=== PATIENT | male | born 1945 | race Caucasian/White ===

== ENCOUNTER 2016-09-27 00:24 | Inpatient (IN) | payer OTHER, MEDICARE ==
[~2016-09-27] VITALS: Ht 185.4 cm; Wt 146.4 kg
[~2016-09-27 00:24] MED LIST: BUME1TAB PO; COUM3TAB PO; GABA100C4 PO; GLIP5 PO; LISI-357 PO; POTA-243 PO; SIMV20 PO; VITA400D PO
[2016-09-27 00:32] VITALS: BP 161/105; PULSE 101; RESP 20; TEMP 97.9; O2SAT 98
[2016-09-27 01:35] VITALS: BP 161/105; PULSE 101; RESP 18; TEMP 97.9; O2SAT 98
[2016-09-27] MEDS ORDERED: ONDANSETRON HCL 4 MG/2 ML VIAL IV ONE (02:00)
[2016-09-27] MEDS ORDERED: WARF4TAB52 PO (02:00)
[2016-09-27] MEDS ORDERED: WARF4TAB51 PO (02:00)
[2016-09-27] MEDS ORDERED: GLIP5TAB8 PO (02:00)
[2016-09-27] MEDS ORDERED: MAGNESIUM CITRATE SOLN 300 ML BTL PO ONE ×2 (02:00→04:15)
--- NOTE | 2016-09-27 02:04 | PD ---
HPI Chief Complaint: GI Complaint Time Seen by Provider: 01:53 Travel History International Travel<30 days: No Contact w/Intl Traveler<30days: No Traveled to known affect area: No History of Present Illness HPI The patient is a 71-year-old male that comes in because he is unable have a bowel movement for 5 days. The patient has back pain but he denies any trauma. The back pain is been going on for about a week. The patient brought a new car which has some degree of difficulty getting in and out of the automobile knee feels that this may have contributed to the back pain. He calls the back pain a nuisance, it is not severe. He has left leg numbness and weakness but the severe intermittent and chronic because he has left leg injury in the past. He denies any urinary problems. He has decreased appetite and possibly some nausea but he claims to have been drinking adequate fluids. PFSH Past Medical History Hx Anticoagulant Therapy: Yes Blood Disorders: No Cancer: No Cardiovascular Problems: No Coronary Artery Disease: Yes Diabetes: Yes Patient Takes Glucophage: No Endocrine: No Gastrointestinal Disorders: No Genitourinary: No Hepatitis: No Hiatal Hernia: No Hypertension: Yes Immune Disorder: No Musculoskeletal: No Neurologic: No Psychiatric: No Reproductive: No Respiratory: No Thyroid Disease: No Influenza Vaccination: No Past Surgical History Abdominal Surgery: No AICD: No Cardiac Surgery: No Endocrine Surgery: No Eye Surgery: No Genitourinary Surgery: No Joint Replacement: Yes (LEFT HIP 2001, 2002, REMOVED MAR 2006) Neurologic Surgery: No Oral Surgery: No Pacemaker: No Other Surgery: Yes (BILAT ANKLE FX REPAIR 2000) Social History Alcohol Use: Yes (OCCAS) Tobacco Use: Yes (07/04 PPD) Substance Use: No Allergies-Medications (Allergen,Severity, Reaction): Coded Allergies: No Known Allergies (Verified , 09/27/16) Uncoded Allergies: PAPER TAPE TEARS HIS SKIN (Allergy, Mild, 11/01/06) Reported Meds & Prescriptions Reported Meds & Active Scripts Active Reported Glipizide 5 Mg Tab 5 Mg PO DAILY Take 30 minutes before a meal Warfarin 2 Mg Tab 2 Mg PO DAILY PRN Sun, Mon, Wed, Fri Warfarin 1 Mg Tab 1.5 Mg PO DAILY PRN Tues, Thurs, Sat Review of Systems Except as stated in HPI: all other systems reviewed are Neg Physical Exam Narrative GENERAL: The patient is alert, oriented 3 in no apparent distress. The heart rate is 101 and the blood pressure is 161/105 but the rest the vital signs are normal. SKIN: Focused skin assessment warm/dry. There is a chronic venous insufficiency rash on both lower extremities otherwise no other skin rash. HEAD: Atraumatic. Normocephalic. EYES: Pupils equal and round. No scleral icterus. No injection or drainage. ENT: No nasal bleeding or discharge. Mucous membranes pink and moist. NECK: Trachea midline. No JVD. CARDIOVASCULAR: Regular rate and rhythm. No murmur appreciated. RESPIRATORY: No accessory muscle use. Clear to auscultation. Breath sounds equal bilaterally. GASTROINTESTINAL: Abdomen soft, non-tender, nondistended. Hepatic and splenic margins not palpable. No guarding or rebound is present. MUSCULOSKELETAL: No obvious deformities. No clubbing. No cyanosis. No edema. NEUROLOGICAL: Awake and alert. No obvious cranial nerve deficits. Motor grossly within normal limits. Normal speech. PSYCHIATRIC: Appropriate mood and affect; insight and judgment normal. RECTAL EXAM: No masses or tenderness, stool is brown and guaiac-negative. No fecal impactions are noted and the specter tone is normal. Data Data Last Documented VS Vital Signs Date Time Temp Pulse Resp B/P Pulse Ox O2 Delivery O2 Flow Rate FiO2 09/27/16 01:35 97.9 101 18 161/105 98 Orders Complete Blood Count With Diff (09/27/16 01:53) Basic Metabolic Panel (Bmp) (09/27/16 01:53) Urinalysis - C+S If Indicated (09/27/16 01:53) Sodium Chlor 0.9% 1000 Ml Inj (Ns 1000 M (09/27/16 02:00) Ondansetron Inj (Zofran Inj) (09/27/16 02:00) Magnesium Citrate Liq (Citroma Liq) (09/27/16 02:00) Magnesium Citrate Liq (Citroma Liq) (09/27/16 04:15) Peg (High)/E-Lyte Liq (Colyte Liq) (09/27/16 04:45) Iv Access Insert/Monitor (09/27/16 04:55) Ecg Monitoring (09/27/16 04:55) Oximetry (09/27/16 04:55) Sodium Chloride 0.9% Flush (Ns Flush) (09/27/16 05:00) Ct Abd/Pel W/O Iv Contrast (09/27/16 04:55) Admit To Inpatient (09/27/16 04:59) Vital Signs (Adult) Q4H (09/27/16 04:59) Diet Diabetic (09/27/16 Breakfast) Diet Renal (09/27/16 Breakfast) Sodium Chlor 0.9% 1000 Ml Inj (Ns 1000 M (09/27/16 04:59) Sodium Chloride 0.9% Flush (Ns Flush) (09/27/16 05:00) Sodium Chloride 0.9% Flush (Ns Flush) (09/27/16 09:00) Ondansetron Inj (Zofran Inj) (09/27/16 05:00) Bisacodyl Supp (Dulcolax Supp) (09/27/16 05:00) Docusate Sodium (Colace) (09/27/16 05:00) Magnesium Hydroxide Liq (Milk Of Magnesi (09/27/16 05:00) Sennosides (Senokot) (09/27/16 05:00) Comprehensive Metabolic Panel (09/28/16 06:00) Complete Blood Count With Diff (09/28/16 06:00) Pt Request For Service (09/27/16 04:59) Case Management Consult (09/27/16 04:59) Heparin Inj (Heparin Inj) (09/27/16 05:00) Naloxone Inj (Narcan Inj) (09/27/16 05:00) Insulin Aspart Supplemtl Scale (Novolog (09/27/16 07:00) Inpatient Certification (09/27/16 ) Prothrombin Time / Inr (Pt) (09/27/16 05:02) Warfarin Consult Pharmacy (Coumadin Cons (09/27/16 05:15) Admit Order (Ed Use Only) (09/27/16 05:26) Labs Laboratory Tests Test 09/27/16 09/27/16 09/27/16 02:10 03:30 05:18 White Blood Count 10.0 TH/MM3 Red Blood Count 4.32 MIL/MM3 Hemoglobin 12.4 GM/DL Hematocrit 37.9 % Mean Corpuscular Volume 87.8 FL Mean Corpuscular Hemoglobin 28.8 PG Mean Corpuscular Hemoglobin 32.8 % Concent Red Cell Distribution Width 15.4 % Platelet Count 232 TH/MM3 Mean Platelet Volume 7.3 FL Neutrophils (%) (Auto) 77.3 % Lymphocytes (%) (Auto) 10.0 % Monocytes (%) (Auto) 6.1 % Eosinophils (%) (Auto) 4.3 % Basophils (%) (Auto) 2.3 % Neutrophils # (Auto) 7.8 TH/MM3 Lymphocytes # (Auto) 1.0 TH/MM3 Monocytes # (Auto) 0.6 TH/MM3 Eosinophils # (Auto) 0.4 TH/MM3 Basophils # (Auto) 0.2 TH/MM3 CBC Comment DIFF FINAL Differential Comment Sodium Level 140 MEQ/L Potassium Level 5.3 MEQ/L Chloride Level 105 MEQ/L Carbon Dioxide Level 27.1 MEQ/L Anion Gap 8 MEQ/L Blood Urea Nitrogen 33 MG/DL Creatinine 2.80 MG/DL Estimat Glomerular Filtration 22 ML/MIN Rate Random Glucose 107 MG/DL Calcium Level 8.8 MG/DL Urine Color YELLOW Urine Turbidity CLEAR Urine pH 5.5 Urine Specific [place] 1.020 Urine Protein TRACE mg/dL Urine Glucose (UA) NEG mg/dL Urine Ketones NEG mg/dL Urine Occult Blood TRACE Urine Nitrite NEG Urine Bilirubin NEG Urine Leukocyte Esterase TRACE Urine RBC 3-5 /hpf Urine WBC 3-5 /hpf Urine Squamous Epithelial 6-8 /hpf Cells Urine Bacteria NONE /hpf Microscopic Urinalysis Comment CULT NOT INDICATED Prothrombin Time 30.5 SEC Prothromb Time International 2.6 RATIO Ratio MDM Medical Decision Making Medical Screen Exam Complete: Yes Emergency Medical Condition: Yes Medical Record Reviewed: Yes Interpretation(s) The CBC is normal except for hemoglobin of 12.4 and hematocrit of 37.9. The basic metabolic profile shows a potassium 5.3, BUN 33, creatinine 2.8 with GFR of 22. The urine shows trace occult blood, trace leukocyte esterase but is otherwise normal and culture is not indicated. The specific gravity is 1.020. Differential Diagnosis Small bowel obstruction, constipation, ileus, renal insufficiency, electrolyte disorder, dehydration Narrative Course Despite multiple cups of Gatorade and to bottles of magnesium citrate the patient still has not had a bowel movement. At this point we will give him GoLYTELY and the labor try at home. If he has any problems he should return to the emergency department. The patient states that he has reduced renal function. Unfortunately, I do not have any values of creatinine after 2006 for this patient. At that time, his creatinine was 1.2. It is now 2.8. It is possible this could be prerenal and from dehydration but the patient also has a potassium of 5.3 and no hemolysis was noted. The GFR is only 22. It is now 0450 and the patient has just vomited. It is now 0625 and the patient just had a bowel movement. He states he feels much better and wants to sign out AMA and go home. He is going to take care of his renal insufficiency, he already has a plan to see a operational risk consultant. Diagnosis Primary Impression: Constipation Additional Impression: Acute renal insufficiency Disposition: 07 AGAINST MEDICAL ADVICE Condition: Stable Trace Briscoe MD Sep 27, 2016 02:04
[2016-09-27 02:22] LABS: AUTOMATED NEUTROPHIL # 7.8 TH/MM3 (1.8-7.7); BASOPHIL # 0.2 TH/MM3 (0-0.2); BASOPHIL % 2.3 % (0.0-2.0); EOSINOPHIL # 0.4 TH/MM3 (0-0.4); EOSINOPHIL % 4.3 % (0.0-4.0); HEMATOCRIT 37.9 % (39.0-51.0); HEMO FLAGS DIFF FINAL; MEAN CELL VOLUME 87.8 FL (80.0-100.0); MEAN CORPUSCULAR HEMOGLOBIN 28.8 PG (27.0-34.0); MEAN CORPUSCULAR HGB CONC 32.8 % (32.0-36.0); MONO % 6.1 % (0.0-8.0); NEUT % 77.3 % (16.0-70.0); PLATELET COUNT 232 TH/MM3 (150-450); RED BLOOD COUNT 4.32 MIL/MM3 (4.50-5.90); RED CELL DISTRIBUTION WIDTH 15.4 % (11.6-17.2)
[2016-09-27 02:29] LABS: POTASSIUM 5.3 MEQ/L (3.5-5.1)
[2016-09-27 02:32] LABS: BICARBONATE 27.1 MEQ/L (21.0-32.0)
[2016-09-27] MEDS: SODIUM CHLOR 0.9% 1000 ML INJ 1,000 ML IV SCH ×2 (03:08→05:59)
[2016-09-27 03:39] LABS: BLOOD, URINE TRACE (NEG); GLUCOSE,URINE NEG (NEG); KETONE, URINE NEG (NEG); NITRITE,URINE NEG (NEG); PH, URINE 5.5 (5.0-8.5)
[2016-09-27 03:45] LABS: COMMENT (UR) CULT NOT INDICATED; CULTURE IF INDICATED CULT NOT INDICATED; URINE COLOR YELLOW (YELLW/STRAW)
[2016-09-27] MEDS ORDERED: PEG (High)/E-LYTE SOLN 4000 ML BTL PO ONE (04:45)
[2016-09-27] MEDS ORDERED: SODIUM CHLOR 0.9% 1000 ML INJ 1,000 ML IV SCH (04:59)
[2016-09-27] MEDS ORDERED: BISACODYL 10 MG SUPP RECTAL PRN (05:00)
[2016-09-27] MEDS ORDERED: ONDANSETRON HCL 4 MG/2 ML VIAL IVP PRN (05:00)
[2016-09-27] MEDS ORDERED: HEPARIN SODIUM - SQ 10,000 UNITS/ML VIAL SQ SCH (05:00)
[2016-09-27] MEDS ORDERED: SODIUM CHLORIDE 0.9% FLUSH 10 ML FLUSH IV FLUSH PRN ×2 (05:00)
[2016-09-27] MEDS ORDERED: SENNOSIDES 8.6 MG TAB PO PRN (05:00)
[2016-09-27] MEDS ORDERED: DOCUSATE SODIUM 100 MG CAP PO SCH (05:00)
[2016-09-27] MEDS ORDERED: NALOXONE HCL 0.4 MG/ML AMP IV PRN (05:00)
[2016-09-27] MEDS ORDERED: MAGNESIUM HYDROXIDE SUSP 30 ML CUP PO PRN (05:00)
--- NOTE | 2016-09-27 05:45 | RADHPO ---
EXAM DATE/TIME: 09/27/2016 05:02 [facility] COMPARISON: No previous studies available for comparison. INDICATIONS : Constipation for five days. ORAL CONTRAST: No oral contrast ingested. RADIATION DOSE: 30.00 CTDIvol (mGy) MEDICAL HISTORY : Diabetes mellitus type 2. Hypertension. SURGICAL HISTORY : Hip replacements. ENCOUNTER: Initial ACUITY: 4 - 6 days PAIN SCALE: 4/10 LOCATION: abdomen TECHNIQUE: Volumetric scanning of the abdomen and pelvis was performed. Using automated exposure control and ad justment of the mA and/or kV according to patient size, radiation dose was kept as low as reasonably achievable to obtain optimal diagnostic quality images. FINDINGS: Mild fibrotic change is present at the lung bases. No acute findings in the liver, spleen, adrenals, kidneys or pancreas. The stomach is distended with fluid. There is moderate constipation. Colonic diverticula are present without evidence for diverticulitis. No free fluid. No free air. No bowel obstruction. Previous left hip replacement. CONCLUSION: 1. Moderate constipation. Diverticulosis without diverticulitis. No acute findings. 2. Previous left hip replacement. Raoul Biggs MD on September 27, 2016 at 5:38 Board Certified Radiologist. This report was verified electronically.
[2016-09-27 05:50] LABS: INTERNATIONAL NORMALIZED RATIO 2.6 RATIO; PROTHROMBIN TIME - PATIENT 30.5 SEC (9.8-11.6)
[2016-09-27 06:15] VITALS: BP 174/74
[2016-09-27] MEDS ORDERED: INSULIN ASPART SUPPLEMENTAL SCALE SQ SCH (07:00)
[2016-09-27] MEDS ORDERED: SODIUM CHLORIDE 0.9% FLUSH 10 ML FLUSH IV FLUSH SCH (09:00)
== END 2016-09-27 06:44 | disposition left against medical advice (07) | DRG 392 ==
LOC: PHED 00:24 → PHEDA 05:28
PROVIDERS: ADMIT Family Medicine; ATTEND Family Medicine
DX: K59.00 Constipation, unspecified (principal); E11.9 Type 2 diabetes mellitus without complications; I10 Essential (primary) hypertension; I25.10 Atherosclerotic heart disease of native coronary artery without angina pectoris; N28.9 Disorder of kidney and ureter, unspecified; Z79.84 Long term (current) use of oral hypoglycemic drugs; F17.210 Nicotine dependence, cigarettes, uncomplicated
CPT/HCPCS: 74176; 80048; 81001; 85025; 85610; 96361; 96374; J1644; J2405; J7030

== ENCOUNTER 2016-10-01 14:27 | Emergency (ER) | payer MEDICARE, OTHER ==
[~2016-10-01] VITALS: Ht 185.4 cm; Wt 145.0 kg
[~2016-10-01 14:27] MED LIST changes: -BUME1TAB PO; -COUM3TAB PO; -GABA100C4 PO; -GLIP5 PO; +GLIP5TAB8 PO; -LISI-357 PO; -POTA-243 PO; -SIMV20 PO; -VITA400D PO; +WARF4TAB51 PO; +WARF4TAB52 PO
[2016-10-01 14:34] VITALS: BP 141/91; PULSE 89; RESP 18; TEMP 97.4; O2SAT 96
[2016-10-01] MEDS ORDERED: MORPHINE SULFATE 4 MG/ML INJ IV PUSH ONE ×2 (15:00→15:15)
[2016-10-01] MEDS ORDERED: SODIUM CHLORID 0.9% 500 ML INJ 500 ML IV ONE (15:00)
[2016-10-01] MEDS ORDERED: ONDANSETRON HCL 4 MG/2 ML VIAL IV PUSH ONE ×2 (15:00→15:15)
--- NOTE | 2016-10-01 15:08 | PD ---
HPI Chief Complaint: GI Complaint Time Seen by Provider: 14:52 Travel History International Travel<30 days: No Contact w/Intl Traveler<30days: No Traveled to known affect area: No History of Present Illness HPI The patient is a 71-year-old male who presents emergency department for low back pain with radiculopathy and constipation. The patient was evaluated in the emergency department one week ago for similar symptoms. The patient was noted to have elevated creatinine and a CT the abdomen and pelvis revealed moderate constipation. The patient was provided GoLYTELY, had a bowel movement, and signed out AGAINST MEDICAL ADVICE. The patient states he has had difficulty on weekend with pain in the lower back and radiates down the left leg , to the medial aspect left thigh, with mild weakness the left lower extremity. The patient states he had difficulty bearing weight on the affected leg earlier today. The patient also states he has not had a bowel movement since he signed out against medical records administrator. The patient states he received a call from his primary physician at home who asked him how he was doing today, advised and he is not doing well, and he was referred to the emergency department. The patient's primary physician is Dr. Dimitri Gillespie. The patient does note previous multiple surgeries to the left hip and the left lower extremity in the past, however, states the weakness is acute. 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 He denies any difficulty with urination. He does complain of mild lower anterior abdominal discomfort related to his constipation. PFSH Past Medical History Hx Anticoagulant Therapy: Yes Blood Disorders: No Cancer: No Cardiovascular Problems: No Coronary Artery Disease: Yes Diabetes: Yes Patient Takes Glucophage: No Diminished Hearing: No Deep Vein Thrombosis: Yes Endocrine: No Gastrointestinal Disorders: No Genitourinary: No Hepatitis: No Hiatal Hernia: No Hypertension: Yes Immune Disorder: No Musculoskeletal: No Neurologic: No Psychiatric: No Reproductive: No Respiratory: No Thyroid Disease: No Influenza Vaccination: Yes ?: Not Past Surgical History Abdominal Surgery: No AICD: No Cardiac Surgery: No Endocrine Surgery: No Eye Surgery: No Genitourinary Surgery: No Joint Replacement: Yes (LEFT HIP 2001, 2002, REMOVED MAR 2006) Neurologic Surgery: No Oral Surgery: No Pacemaker: No Other Surgery: Yes (BILAT ANKLE FX REPAIR 2000) Social History Alcohol Use: Yes (OCCAS) Tobacco Use: Yes (07/04 PPD) Substance Use: No Allergies-Medications (Allergen,Severity, Reaction): Coded Allergies: No Known Allergies (Verified , 10/01/16) Uncoded Allergies: PAPER TAPE TEARS HIS SKIN (Allergy, Mild, 11/01/06) Reported Meds & Prescriptions Reported Meds & Active Scripts Active Golytely 236 gm (Polyethylene Glycol/Electrolytes) 4,000 Ml Soln 4,000 Ml PO ONCE [place] (Hydrocodone-Acetaminophen) 5-325 mg Tab 1 Tab PO Q4H PRN Reported Glipizide 5 Mg Tab 5 Mg PO DAILY Take 30 minutes before a meal Warfarin 2 Mg Tab 2 Mg PO DAILY PRN Sun, Mon, Wed, Fri Warfarin 1 Mg Tab 1.5 Mg PO DAILY PRN , , Sat Review of Systems Except as stated in HPI: all other systems reviewed are Neg General / Constitutional: No: Fever Cardiovascular: No: Chest Pain or Discomfort Respiratory: No: Shortness of Breath Gastrointestinal: Positive: Abdominal Pain, Constipation, No: Nausea, Vomiting Musculoskeletal: Positive: Weakness, Pain Neurologic: Positive: Sensory Disturbance (neuropathy to left lower extremity per the patient's report) Physical Exam Narrative GENERAL: Awake, alert, 71-year-old male appears his stated age and is in no acute respiratory distress. SKIN: Focused skin assessment warm/dry. HEAD: Atraumatic. Normocephalic. EYES: No injection or drainage. ENT: No nasal bleeding or discharge. Breath smells of tobacco. NECK: Trachea midline. No JVD. CARDIOVASCULAR: Regular rate and rhythm. No murmur appreciated. RESPIRATORY: No accessory muscle use. Clear to auscultation. Breath sounds equal bilaterally. GASTROINTESTINAL: Abdomen soft, obese with a large pannus. Minimal suprapubic tenderness. Rectal: No fecal impaction noted positive, positive rectal tone. MUSCULOSKELETAL: Mild edema lower extremities, left greater than right. Chronic venous stasis changes lower extremities bilaterally. NEUROLOGICAL: Awake and alert. No obvious cranial nerve deficits. Motor grossly within normal limits. Normal speech. PSYCHIATRIC: Appropriate mood and affect; insight and judgment normal. Data Data Last Documented VS Vital Signs Date Time Temp Pulse Resp B/P Pulse Ox O2 Delivery O2 Flow Rate FiO2 10/01/16 19:10 90 18 169/91 95 Room Air 10/01/16 14:34 97.4 Orders Complete Blood Count With Diff (10/01/16 14:59) Basic Metabolic Panel (Bmp) (10/01/16 14:59) Urinalysis - C+S If Indicated (10/01/16 14:59) Mri L Spine W/O Contrast (10/01/16 ) Morphine Inj (Morphine Inj) (10/01/16 15:00) Ondansetron Inj (Zofran Inj) (10/01/16 15:00) Sodium Chlorid 0.9% 500 Ml Inj (Ns 500 M (10/01/16 15:00) Act Partial Throm Time (Ptt) (10/01/16 15:03) Prothrombin Time / Inr (Pt) (10/01/16 15:03) Morphine Inj (Morphine Inj) (10/01/16 15:15) Ondansetron Inj (Zofran Inj) (10/01/16 15:15) Lorazepam Inj (Ativan Inj) (10/01/16 15:45) Sodium Chlor 0.9% 1000 Ml Inj (Ns 1000 M (10/01/16 19:00) Labs Laboratory Tests Test 10/01/16 10/01/16 15:10 18:25 White Blood Count 8.3 TH/MM3 Red Blood Count 4.04 MIL/MM3 Hemoglobin 11.8 GM/DL Hematocrit 35.4 % Mean Corpuscular Volume 87.8 FL Mean Corpuscular Hemoglobin 29.2 PG Mean Corpuscular Hemoglobin 33.3 % Concent Red Cell Distribution Width 15.3 % Platelet Count 219 TH/MM3 Mean Platelet Volume 7.5 FL Neutrophils (%) (Auto) 77.0 % Lymphocytes (%) (Auto) 10.0 % Monocytes (%) (Auto) 5.9 % Eosinophils (%) (Auto) 4.8 % Basophils (%) (Auto) 2.3 % Neutrophils # (Auto) 6.4 TH/MM3 Lymphocytes # (Auto) 0.8 TH/MM3 Monocytes # (Auto) 0.5 TH/MM3 Eosinophils # (Auto) 0.4 TH/MM3 Basophils # (Auto) 0.2 TH/MM3 CBC Comment DIFF FINAL Differential Comment Prothrombin Time 44.6 SEC Prothromb Time International 3.8 RATIO Ratio Activated Partial 57.7 SEC Thromboplast Time Sodium Level 138 MEQ/L Potassium Level 5.2 MEQ/L Chloride Level 103 MEQ/L Carbon Dioxide Level 27.8 MEQ/L Anion Gap 7 MEQ/L Blood Urea Nitrogen 28 MG/DL Creatinine 3.00 MG/DL Estimat Glomerular Filtration 21 ML/MIN Rate Random Glucose 101 MG/DL Calcium Level 8.2 MG/DL Urine Color YELLOW Urine Turbidity CLEAR Urine pH 6.0 Urine Specific [place] 1.009 Urine Protein NEG mg/dL Urine Glucose (UA) NEG mg/dL Urine Ketones NEG mg/dL Urine Occult Blood TRACE Urine Nitrite NEG Urine Bilirubin NEG Urine Leukocyte Esterase NEG Urine RBC 0-3 /hpf Urine WBC 0-2 /hpf Urine Squamous Epithelial 0-5 /hpf Cells Microscopic Urinalysis Comment CULT NOT INDICATED MDM Medical Decision Making Medical Screen Exam Complete: Yes Emergency Medical Condition: Yes Medical Record Reviewed: Yes Differential Diagnosis Differential diagnosis includes herniated disc, cauda equina syndrome, sciatica , spinal stenosis, constipation, multiple myeloma, acute renal failure. Narrative Course IV was established, labs are drawn and sent, and the patient was placed on cardiac telemetry monitoring and continuous pulse oximetry monitoring. MRI lumbar spine was ordered to evaluate for possible significant spinal stenosis and her herniated disc and shooting to constipation radiculopathy. The patient was administered morphine and Zofran for his symptoms. Repeat BMP was sent to lab to evaluate for improving or worsening GFR. The patient was signed out to the oncoming physician at 4 PM. If MRI is unremarkable and kidney function has improved, Patient will follow-up as an outpatient. If patient's creatinine is significantly elevated, patient may need admission and IV fluids. The patient was signed out to the oncoming physician at 4 PM with MRI results pending. Diagnosis Primary Impression: Back pain with left-sided radiculopathy Additional Impression: Constipation Qualified Code: K59.00 - Constipation, unspecified constipation type Patient Instructions: General Instructions Med/Other Pt SpecificInfo: Prescription(s) given Scripts Peg-Electrolytes (Golytely 236 gm)4,000 Ml Soln4,000 Ml PO ONCE #1 CONTAINER Ref 0 Prov:Eugenia Cruz MD 10/01/16 Hydrocodone-Acetaminophen ([place])5-325 mg Tab1 Tab PO Q4H PRN (PAIN) #12 TAB Ref 0 Prov:Eugenia Cruz MD 10/01/16 Disposition: 01 DISCHARGE HOME Condition: Stable Sharan Rodriguez MD Oct 01, 2016 15:08
[2016-10-01 15:23] LABS: AUTOMATED NEUTROPHIL # 6.4 TH/MM3 (1.8-7.7); BASOPHIL # 0.2 TH/MM3 (0-0.2); BASOPHIL % 2.3 % (0.0-2.0); EOSINOPHIL # 0.4 TH/MM3 (0-0.4); EOSINOPHIL % 4.8 % (0.0-4.0); HEMATOCRIT 35.4 % (39.0-51.0); HEMO FLAGS DIFF FINAL; LYMPHOCYTE # 0.8 TH/MM3 (1.0-4.8); MEAN CELL VOLUME 87.8 FL (80.0-100.0); MEAN CORPUSCULAR HEMOGLOBIN 29.2 PG (27.0-34.0); MEAN CORPUSCULAR HGB CONC 33.3 % (32.0-36.0); MONO % 5.9 % (0.0-8.0); PLATELET COUNT 219 TH/MM3 (150-450); RED BLOOD COUNT 4.04 MIL/MM3 (4.50-5.90); RED CELL DISTRIBUTION WIDTH 15.3 % (11.6-17.2); WHITE BLOOD COUNT 8.3 TH/MM3 (4.0-11.0)
[2016-10-01 15:41] VITALS: BP 152/83; PULSE 80; RESP 18; O2SAT 97
[2016-10-01] MEDS ORDERED: LORazepam 2 MG/ML VIAL IV PUSH ONE (15:45)
[2016-10-01 16:05] LABS: POTASSIUM 5.2 MEQ/L (3.5-5.1)
[2016-10-01 16:10] LABS: APTT (PATIENT) 57.7 SEC (24.3-30.1); BICARBONATE 27.8 MEQ/L (21.0-32.0); INTERNATIONAL NORMALIZED RATIO 3.8 RATIO; PROTHROMBIN TIME - PATIENT 44.6 SEC (9.8-11.6)
[2016-10-01 17:28] VITALS: BP 159/87; PULSE 90; RESP 18; O2SAT 98
--- NOTE | 2016-10-01 17:40 | RADHPO ---
EXAM DATE/TIME: 10/01/2016 16:41 [facility] COMPARISON: CT ABDOMEN & PELVIS W/O CONTRAST, September 27, 2016, 5:02. INDICATIONS : Radiculopathy. MEDICAL HISTORY : Diabetes mellitus type 2. Renal insufficiency. SURGICAL HISTORY : Left hip replacment, left ankle surgery. ENCOUNTER: Initial ACUITY: 2 weeks PAIN SCORE: 7/10 LOCATION: Bilateral lower back. TECHNIQUE: Multiplanar multisequence MRI of the lumbar spine was performed without contrast. FINDINGS: The most caudal appearing lumbar vertebra is numbered as L5. Sagittal T1 and T2-weighted images demonstrate partial desiccation of the disc at L3/4 and L5/S1. The alignment of the lumbar spine is anatomic. The T2-weighted images do demonstrate scattered areas of abnormal signal within the lumbar vertebral bodies essentially at all levels. There is abnormal T2 signal within the sacrum and the spinous proce ss of T12, L1 and L2. This is possibly related to the patient's renal insufficiency and marrow replac ement however, metastatic disease is not excluded. Bone scan is warranted for further assessment. The paraspinous soft tissues are unremarkable. T12-L1: The thecal sac has a normal diameter. No evidence of disc bulge or protrusion. The neural foramina are patent bilaterally. L1-L2: The thecal sac has a normal diameter. No evidence of disc bulge or protrusion. The neural foramina are patent bilaterally. L2-L3: The thecal sac has a normal diameter. No evidence of disc bulge or protrusion. The neural foramina are patent bilaterally. There is moderate facet arthritis bilaterally. L3-L4: There is a small broad-based disc bulge. The thecal space and foramina are adequate. There is moderat e facet arthritis bilaterally. L4-L5: The thecal sac has a normal diameter. No evidence of disc bulge or protrusion. The neural foramina are patent bilaterally. There is moderate facet arthritis bilaterally. L5-S1: The thecal sac has a normal diameter. No evidence of disc bulge or protrusion. The neural foramina are patent bilaterally. There is moderate facet arthritis bilaterally. CONCLUSION: 1. No significant neural foraminal stenosis or spinal stenosis identified. 2. Scattered areas of abnormal T2 signal diffusely throughout the lumbar vertebral bodies. Bone scan to exclude metastatic disease is warranted for further assessment. 3. 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 New Yoder MD on October 01, 2016 at 17:34 Board Certified Radiologist. This report was verified electronically.
[2016-10-01 18:39] LABS: BLOOD, URINE TRACE (NEG); GLUCOSE,URINE NEG (NEG); KETONE, URINE NEG (NEG); NITRITE,URINE NEG (NEG)
[2016-10-01 18:52] LABS: URINE COLOR YELLOW (YELLW/STRAW)
[2016-10-01 18:53] LABS: COMMENT (UR) CULT NOT INDICATED; CULTURE IF INDICATED CULT NOT INDICATED; RBC, URINE 0-3 /hpf (0-3); SQUAMOUS EPITHELIAL CELL URINE 0-5 /hpf (0-5); WBC, URINE 0-2 /hpf (0-5)
[2016-10-01] MEDS ORDERED: SODIUM CHLOR 0.9% 1000 ML INJ 1,000 ML IV ONE (19:00)
[2016-10-01 19:10] VITALS: BP 169/91; PULSE 90; RESP 18; O2SAT 95
[2016-10-01] MEDS ORDERED: COLY4000S PO (19:11)
[2016-10-01] MEDS ORDERED: NORC5TAB PO (19:11)
--- NOTE | 2016-10-01 19:12 | PD ---
Physical Exam Date Seen by Provider: Oct 01, 2016 Time Seen by Provider: 18:00 Narrative Patient was signed out to me at 4 PM pending an MRI of his spine and labs. Patient reports an ongoing problem with constipation. He was seen here in the recent past and given GoLYTELY with excellent results. He would like to do that again. He would like to do this in the privacy of his own home. The patient is also complaining with low back pain. There is a component of sciatica. Data Data Last Documented VS Vital Signs Date Time Temp Pulse Resp B/P Pulse Ox O2 Delivery O2 Flow Rate FiO2 10/01/16 17:28 90 18 159/87 98 Room Air 10/01/16 14:34 97.4 Orders Complete Blood Count With Diff (10/01/16 14:59) Basic Metabolic Panel (Bmp) (10/01/16 14:59) Urinalysis - C+S If Indicated (10/01/16 14:59) Mri L Spine W/O Contrast (10/01/16 ) Morphine Inj (Morphine Inj) (10/01/16 15:00) Ondansetron Inj (Zofran Inj) (10/01/16 15:00) Sodium Chlorid 0.9% 500 Ml Inj (Ns 500 M (10/01/16 15:00) Act Partial Throm Time (Ptt) (10/01/16 15:03) Prothrombin Time / Inr (Pt) (10/01/16 15:03) Morphine Inj (Morphine Inj) (10/01/16 15:15) Ondansetron Inj (Zofran Inj) (10/01/16 15:15) Lorazepam Inj (Ativan Inj) (10/01/16 15:45) Sodium Chlor 0.9% 1000 Ml Inj (Ns 1000 M (10/01/16 19:00) Labs Laboratory Tests Test 10/01/16 10/01/16 15:10 18:25 White Blood Count 8.3 TH/MM3 Red Blood Count 4.04 MIL/MM3 Hemoglobin 11.8 GM/DL Hematocrit 35.4 % Mean Corpuscular Volume 87.8 FL Mean Corpuscular Hemoglobin 29.2 PG Mean Corpuscular Hemoglobin 33.3 % Concent Red Cell Distribution Width 15.3 % Platelet Count 219 TH/MM3 Mean Platelet Volume 7.5 FL Neutrophils (%) (Auto) 77.0 % Lymphocytes (%) (Auto) 10.0 % Monocytes (%) (Auto) 5.9 % Eosinophils (%) (Auto) 4.8 % Basophils (%) (Auto) 2.3 % Neutrophils # (Auto) 6.4 TH/MM3 Lymphocytes # (Auto) 0.8 TH/MM3 Monocytes # (Auto) 0.5 TH/MM3 Eosinophils # (Auto) 0.4 TH/MM3 Basophils # (Auto) 0.2 TH/MM3 CBC Comment DIFF FINAL Differential Comment Prothrombin Time 44.6 SEC Prothromb Time International 3.8 RATIO Ratio Activated Partial 57.7 SEC Thromboplast Time Sodium Level 138 MEQ/L Potassium Level 5.2 MEQ/L Chloride Level 103 MEQ/L Carbon Dioxide Level 27.8 MEQ/L Anion Gap 7 MEQ/L Blood Urea Nitrogen 28 MG/DL Creatinine 3.00 MG/DL Estimat Glomerular Filtration 21 ML/MIN Rate Random Glucose 101 MG/DL Calcium Level 8.2 MG/DL Urine Color YELLOW Urine Turbidity CLEAR Urine pH 6.0 Urine Specific [place] 1.009 Urine Protein NEG mg/dL Urine Glucose (UA) NEG mg/dL Urine Ketones NEG mg/dL Urine Occult Blood TRACE Urine Nitrite NEG Urine Bilirubin NEG Urine Leukocyte Esterase NEG Urine RBC 0-3 /hpf Urine WBC 0-2 /hpf Urine Squamous Epithelial 0-5 /hpf Cells Microscopic Urinalysis Comment CULT NOT INDICATED MDM Supervised Visit with NIDA: No Narrative Course CBC & BMP Diagram 10/01/16 15:10 Last Impressions Lumbar Spine MRI 10/01/16 0000 Signed Impressions: Service Date/Time: Saturday, October 01, 2016 16:41 - CONCLUSION: 1. No significant neural foraminal stenosis or spinal stenosis identified. 2. Scattered areas of abnormal T2 signal diffusely throughout the lumbar vertebral bodies. Bone scan to exclude metastatic disease is warranted for further assessment. 3. 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 New Yoder MD I have discussed his laboratory and MRI findings. The patient does not desire admission to the hospital. He reports close relationship with his primary care doctor and states that he can be evaluated as an outpatient. He requests something for the constipation and something for the back pain. I have explained to the patient that narcotics for back pain will exacerbate the constipation. He reports that he is aware of this. Diagnosis Primary Impression: Back pain with left-sided radiculopathy Additional Impression: Constipation Qualified Code: K59.00 - Constipation, unspecified constipation type Referrals: Primary Care Physician Patient Instructions: Constipation (DC), General Instructions Additional Instruction: Take a Dulcolax twice a day as long as you are taking the pain medication. Med/Other Pt SpecificInfo: Prescription(s) given Scripts Peg-Electrolytes (Golytely 236 gm)4,000 Ml Soln4,000 Ml PO ONCE #1 CONTAINER Ref 0 Prov:Eugenia Cruz MD 10/01/16 Hydrocodone-Acetaminophen ([place])5-325 mg Tab1 Tab PO Q4H PRN (PAIN) #12 TAB Ref 0 Prov:Eugenia Cruz MD 10/01/16 Disposition: 01 DISCHARGE HOME Condition: Stable Eugenia Cruz MD Oct 01, 2016 19:12
== END 2016-10-01 19:43 | disposition home or self-care (01) ==
LOC: PHED 14:27
DX: M54.16 Radiculopathy, lumbar region (principal); K59.00 Constipation, unspecified; G62.9 Polyneuropathy, unspecified; M79.605 Pain in left leg; I25.10 Atherosclerotic heart disease of native coronary artery without angina pectoris; E11.9 Type 2 diabetes mellitus without complications; I10 Essential (primary) hypertension; F17.200 Nicotine dependence, unspecified, uncomplicated; Z86.718 Personal history of other venous thrombosis and embolism
CPT/HCPCS: 72148; 80048; 81001; 85025; 85610; 85730; 96361; 96374; 96375; 99284; J2060; J2270; J2405; J7040

== ENCOUNTER 2016-10-26 19:23 | Emergency (ER) | payer OTHER ==
[~2016-10-26] VITALS: Ht 185.4 cm; Wt 135.0 kg
[~2016-10-26 19:23] MED LIST changes: +COLY4000S PO; +NORC5TAB PO
[2016-10-26 19:28] VITALS: BP 149/84; PULSE 87; RESP 18; TEMP 98.1; O2SAT 97
[2016-10-26] MEDS ORDERED: ACETAMINOPHEN/HYDROcodone 325 MG/5 MG TAB PO ONE ×2 (20:00→21:15)
--- NOTE | 2016-10-26 20:04 | PD ---
HPI Chief Complaint: Musculoskeletal Complaint Time Seen by Provider: 19:49 Travel History International Travel<30 days: No Contact w/Intl Traveler<30days: No Traveled to known affect area: No History of Present Illness HPI This 71-year-old male is complaining of back pain. He's been having back pain for several weeks. It's pain in the midline. It does go down his left leg and he gets some tingling in the leg. He was here weeks ago these symptoms and had an MRI done and MRI did not show any stenosis. It was noted that there was some abnormal signal in the bones of the back and the bone scan was recommended. Patient was scheduled for bone scan this past week but he was unable to get the. He has been having increasing trouble walking. He normally does not have any aid but he started using cocaine and now a walker. He had been taking Lortab for pain but has run out and has not had anything for a couple of days. PFSH Past Medical History Hx Anticoagulant Therapy: Yes Blood Disorders: No Cancer: No Cardiovascular Problems: No Coronary Artery Disease: Yes Diabetes: Yes Patient Takes Glucophage: Yes Diminished Hearing: No Deep Vein Thrombosis: Yes Endocrine: No Gastrointestinal Disorders: No Genitourinary: No Hepatitis: No Hiatal Hernia: No Hypertension: Yes Immune Disorder: No Musculoskeletal: No Neurologic: No Psychiatric: No Reproductive: No Respiratory: No Thyroid Disease: No ?: Not Past Surgical History Abdominal Surgery: No AICD: No Cardiac Surgery: No Endocrine Surgery: No Eye Surgery: No Genitourinary Surgery: No Joint Replacement: Yes (LEFT HIP 2001, 2002, REMOVED MAR 2006) Neurologic Surgery: No Oral Surgery: No Pacemaker: No Other Surgery: Yes (BILAT ANKLE FX REPAIR 2000) Social History Alcohol Use: Yes (OCCAS) Tobacco Use: Yes (07/04 PPD) Substance Use: No Allergies-Medications (Allergen,Severity, Reaction): Coded Allergies: No Known Allergies (Verified , 10/26/16) Uncoded Allergies: PAPER TAPE TEARS HIS SKIN (Allergy, Mild, 11/01/06) Reported Meds & Prescriptions Reported Meds & Active Scripts Active [place] (Hydrocodone-Acetaminophen) 5-325 mg Tab 1 Tab PO Q4H PRN Reported Glipizide 5 Mg Tab 5 Mg PO DAILY Take 30 minutes before a meal Warfarin 2 Mg Tab 2 Mg PO DAILY PRN Sun, Mon, Wed, Fri Warfarin 1 Mg Tab 1.5 Mg PO DAILY PRN Tues, Th, Sat Review of Systems General / Constitutional: No: Fever, Chills Eyes: No: Diploplia, Blurred Vision HENT: No: Headaches, Vertigo Cardiovascular: No: Chest Pain or Discomfort, Palpitations Respiratory: No: Cough, Shortness of Breath Gastrointestinal: Positive: Nausea, No: Vomiting Musculoskeletal: Positive: Pain Skin: Positive Rash Physical Exam Narrative GENERAL: Well-developed male SKIN: Focused skin assessment warm/dry. He has chronic venous changes lower legs bilaterally HEAD: Atraumatic. Normocephalic. EYES: Pupils equal and round. No scleral icterus. No injection or drainage. ENT: No nasal bleeding or discharge. Mucous membranes pink and moist. NECK: Trachea midline. No JVD. CARDIOVASCULAR: Regular rate and rhythm. No murmur appreciated. RESPIRATORY: No accessory muscle use. Clear to auscultation. Breath sounds equal bilaterally. GASTROINTESTINAL: Abdomen soft, non-tender, nondistended. Hepatic and splenic margins not palpable. MUSCULOSKELETAL: No obvious deformities. No clubbing. No cyanosis. No edema. The low back is nontender. NEUROLOGICAL: Awake and alert. No obvious cranial nerve deficits. Motor grossly within normal limits. Normal speech. Straight leg raising is painful on the left at 30. Sensation appears grossly intact. He has good strength in plantar and dorsiflexion PSYCHIATRIC: Appropriate mood and affect; insight and judgment normal. Data Data Last Documented VS Vital Signs Date Time Temp Pulse Resp B/P Pulse Ox O2 Delivery O2 Flow Rate FiO2 10/26/16 21:27 84 18 97 10/26/16 21:16 145/82 Room Air 10/26/16 19:28 98.1 Orders Acetamin-Hydrocod 325-5 Mg ([place] 5-325 (10/26/16 20:00) Ondansetron Odt (Zofran Odt) (10/26/16 20:30) Acetamin-Hydrocod 325-5 Mg ([place] 5-325 (10/26/16 21:15) MDM Medical Decision Making Medical Screen Exam Complete: Yes Emergency Medical Condition: Yes Medical Record Reviewed: Yes Differential Diagnosis Differential includes back pain exacerbation Narrative Course Patient says he has been getting good relief with Lortab 5 seems quite a low dose for him. I will give him additional Lortab 5. Diagnosis Primary Impression: Back pain with left-sided radiculopathy Scripts Hydrocodone-Acetaminophen ([place])5-325 mg Tab1 Tab PO Q4H PRN (PAIN) #30 TAB Ref 0 Prov:Toño Bach MD 10/26/16 Disposition: 01 DISCHARGE HOME Condition: Stable Toño Bach MD Oct 26, 2016 20:04
[2016-10-26] MEDS ORDERED: NORC5TAB PO (20:16)
[2016-10-26] MEDS ORDERED: ONDANSETRON ODT 4 MG TAB PO ONE (20:30)
[2016-10-26 21:16] VITALS: BP 145/82; PULSE 84; RESP 18; O2SAT 97
== END 2016-10-26 21:29 | disposition home or self-care (01) ==
LOC: PHED 19:23
DX: M54.9 Dorsalgia, unspecified (principal); M54.10 Radiculopathy, site unspecified; I25.10 Atherosclerotic heart disease of native coronary artery without angina pectoris; E11.9 Type 2 diabetes mellitus without complications; Z86.718 Personal history of other venous thrombosis and embolism; I10 Essential (primary) hypertension; F17.210 Nicotine dependence, cigarettes, uncomplicated
CPT/HCPCS: 99283